=== PATIENT | male | born 1980 | race Caucasian/White ===

== ENCOUNTER 2018-06-04 18:03 | Emergency (ER) | payer MEDICAID ==
[2018-06-04 19:04] VITALS: BP 122/71
--- NOTE | 2018-06-04 19:53 | UC ---
Skin Complaint HPI - HPI Summary HPI Summary: This is lela Shook documenting for attending Rich Patel MD. This patient is a 38 year old M presenting to [facility] with a chief complaint of 2 small red lumps under right nipple that began 3 days ago. The patient rates the pain 0/10 in severity. Symptoms aggravated by nothing. Symptoms alleviated by nothing. Pt denies fever. Pt states he scratched the lumps. He reports that his son was diagnosed with MRSA, and is concerned. Medications reviewed. Allergies reviewed. - History of Current Complaint Chief Complaint: UCSkin Time Seen by Provider: 06/04/18 19:35 Stated Complaint: RED BUMP ON SKIN Hx Obtained From: Patient Onset/Duration: Sudden Onset, Lasting Days, Still Present Skin Exposure Onset/Duration: Days Ago Timing: Constant Onset Severity: Mild Current Severity: Mild Pain Intensity: 0 Location: Discrete - Under right nipple Character: Pruritus Aggravating Factor(s): Nothing Alleviating Factor(s): Nothing Associated Signs & Symptoms: Negative: Fever - Allergy/Home Medications Allergies/Adverse Reactions: Allergies Allergy/AdvReac Type Severity Reaction Status Date / Time Penicillins Allergy Swelling Verified 06/04/18 19:04 Of Face,Lips,& Throat Review of Systems Constitutional: Other - Negative fever Skin: Other - Positive lumps under R nipple All Other Systems Reviewed And Are Negative: Yes PMH/Surg Hx/FS Hx/Imm Hx Previously Healthy: No Endocrine History: Other Other Endocrine History: Negative diabetes Respiratory History: Asthma - Surgical History Surgical History: None - Family History Known Family History: Positive: Other - MRSA - Social History Occupation: Employed Full-time Lives: With Family Alcohol Use: None Substance Use Type: None Smoking Status (MU): Light Every Day Tobacco Smoker Type: Cigarettes Physical Exam - Summary Physical Exam Summary: General: well-appearing, no pain distress Skin: warm, color reflects adequate perfusion, dry. Right below the right nipple there is a skin evulsion that is 5 mm in diameter and right below that is a 5 mm diameter raised papule that is umbilicated and slightly erythematous. Surrounding erythema. No drainage. Head: normal Eyes: EOMI, OLGA ENT: normal Neck: supple, nontender Respiratory: CTA, breath sounds present Cardiovascular: RRR Abdomen: soft, nontender Bowel: present Musculoskeletal: normal, strength/ROM intact Neurological: sensory/motor intact, A&O x3 Psychological: affect/mood appropriate Triage Information Reviewed: Yes Vital Signs: Initial Vital Signs Temp 98.1 F 06/04/18 18:56 Pulse 55 06/04/18 18:56 Resp 18 06/04/18 18:56 BP 122/71 06/04/18 18:56 Pulse Ox 97 06/04/18 18:56 Vital Signs Reviewed: Yes Course/Dx - Course Course Of Treatment: RX BACTRIM DUE TO POSSIBLE EXPOSURE TO MRSA. F/U DERMATOLOGY IF NOT COMPLETELY IMPROVED. RECHECK SOONER IF NEEDED. - Diagnoses Provider Diagnoses: RASH Discharge - Sign-Out/Discharge Documenting (check all that apply): Patient Departure - Discharge Plan Condition: Stable Disposition: HOME Prescriptions: Mupirocin 1 applic TOPICAL TID #22 gm Sulfamethox/Trimethoprim DS* [Bactrim DS 800/160 TAB*] 1 tab PO BID #20 tab Patient Education Materials: Acute Rash (ED) Referrals: [facility] [place] [facility] [Outside] Paul Kay MD [Medical Doctor] - Additional Instructions: FOLLOW UP WITH YOUR PRIMARY CARE DOCTOR OR [facility] TEAM MEMBER IF NOT COMPLETELY. GET RECHECKED FOR ANY WORSENING OF YOUR CONDITION OR QUESTIONS OR CONCERNS. - Billing Disposition and Condition Condition: STABLE Disposition: Home
== END 2018-06-04 19:55 | disposition home or self-care (01) ==
LOC: UCEAST 18:03
DX: R21 Rash and other nonspecific skin eruption (principal); Z20.818 Contact with and (suspected) exposure to other bacterial communicable diseases; Z88.0 Allergy status to penicillin; F17.210 Nicotine dependence, cigarettes, uncomplicated
CPT/HCPCS: 99202; G0463